=== PATIENT | male | born 1945 | race Caucasian/White ===

== ENCOUNTER → 2019-06-08 | Outpatient (CLI) | payer MEDICARE ==
[~2019-06-08] MED LIST: GADOBENATE DIMEGLUMINE 1 ML IV ONE; SODIUM CHLORIDE 0.9% 50ML 50 ML ONE
[2019-06-08 09:51] LABS: BLOOD UREA NITROGEN 25 mg/dL (7-26); BUN/CREATININE RATIO 22 (6-25); CREATININE, SERUM 1.12 mg/dL (0.72-1.25); EST GLOMERULAR FILTRATION RATE > 60 ML/MIN (60-)
--- NOTE | 2019-06-08 15:10 | Diagnostic Imaging Report ---
MRI abdomen without and with contrast History: Renal neoplasm of uncertain significance Comparison: None Technique: Multiplanar and multisequence MRI images of the abdomen were obtained without and subsequently following the administration of intravenous gadolinium. Findings: Examination is technically limited by patient respiratory motion. A 3.4 x 3.3 x 2.9 cm T1 hypointense, T2 heterogeneously hyperintense solid mass is noted within the interpolar region of the right kidney. No involvement of the renal vein is identified. There is no invasion of surrounding visceral structures. A simple appearing cyst is noted within the left kidney measuring 14 mm in size. Otherwise, unremarkable appearance of the adrenal glands and kidneys. The liver is unremarkable. The gallbladder appears normal in size, without wall thickening or intraluminal defect. Unremarkable appearance of the pancreas and spleen. No lymphadenopathy is identified within the abdomen. The visualized bowel loops appear normal in caliber. Impression: 3.4 x 3.3 x 2.9 cm solid mass within the interpolar right kidney, concerning for malignancy. Suggest tissue diagnosis. Signed by: Javi Davis MD on 06/08/2019 3:07 PM
== END ==
LOC: MRI 08:40
PROVIDERS: ATTEND Urology
DX: D41.00 Neoplasm of uncertain behavior of unspecified kidney (principal)
CPT/HCPCS: 36415; 74183; 82565; 84520